=== PATIENT | female | born 1960 | race Caucasian/White ===

== ENCOUNTER 2019-09-30 07:20 | Emergency (ER) | payer BC ==
[2019-09-30 08:06] LABS: EOS # 0.2 (0.04-0.40); HEMATOCRIT 39.7 % (37.0-47.0); HEMOGLOBIN 13.5 g/dL (12.5-16.0); LYMPH# 1.1 (1.50-4.00); MEAN CELL VOLUME 88 fl (78-100); MEAN CORPUSCULAR HEMOGLOBIN 30 pg (27-31); MEAN CORPUSCULAR HGB CONC 34 g/dL (33-37); MEAN PLATELET VOLUME 10.1 fl (7.4-10.4); MONO # 0.7 (0.20-0.80); NEU # 4.7 (1.40-6.50); PLATELET COUNT 245 K/mm3 (130-400); RED BLOOD COUNT 4.51 M/mm3 (4.10-5.30); RED CELL DISTRIBUTION WIDTH 12.3 % (11.5-14.5); WHITE BLOOD COUNT 6.7 K/mm3 (4.8-10.8)
[2019-09-30 08:14] LABS: URINE APPEARANCE CLEAR; URINE BILIRUBIN NEGATIVE (NEGATIVE); URINE BLOOD 50 ery/uL (NEGATIVE); URINE COLOR YELLOW; URINE GLUCOSE NEGATIVE (NEGATIVE); URINE KETONE 1+ (NEGATIVE); URINE LEUKOCYTE ESTERASE NEGATIVE (NEGATIVE); URINE NITRATE NEGATIVE (NEGATIVE); URINE PROTEIN(semi-quant) TRACE mg/dL (NEGATIVE); URINE UROBILINOGEN NORMAL (NORMAL)
[2019-09-30 08:16] LABS: ALBUMIN 4.5 g/dL (3.5-5.0); POTASSIUM 4.1 mmol/L (3.5-5.1)
[2019-09-30 08:18] LABS: CALCIUM 9.9 mg/dL (8.3-10.5)
[2019-09-30 08:19] LABS: TOTAL PROTEIN 7.7 g/dL (6.4-8.3)
[2019-09-30 08:21] LABS: TOTAL BILIRUBIN 0.4 mg/dL (0.2-1.2)
[2019-09-30] MEDS ORDERED: NORCO 325 MG-51 TA1 PO (10:19)
[2019-09-30] MEDS ORDERED: ZOFRAN ODT4 MG PO (10:19)
[2019-09-30] MEDS ORDERED: CYCLOBENZAPRINE10 M1 PO (10:32)
[2019-09-30 10:46] VITALS: BP 142/79
== END 2019-09-30 10:33 | disposition home or self-care (01) ==
LOC: ED 07:20
PROVIDERS: Physician Assistant
DX: K82.8 Other specified diseases of gallbladder (principal)
CPT/HCPCS: J1885; J2360; J2405; J3010; Q9967